=== PATIENT | male | born 1990 | race Caucasian/White ===

== ENCOUNTER 2016-10-10 17:48 | Emergency (ER) | payer OTHER ==
--- NOTE | ~2016-10-10 | CR72 ---
[facility]. [facility] A Service of [facility] & [facility] RADIOLOGY TEXT RESULTS PATIENT: SVETLANA PRABHAKAR LOCATION: SED : [birth year] UNIT #: [id number] AGE: [address]: DOMENICA CRUZ PA-C SEX: M ORDER DR: [id number] [place] [address] [id number] E MR#: [id number] Acc #: [id number] NAME: SVETLANA PRABHAKAR : 1990 SEX: M STUDY DATE/TIME: 10/10/2016 20:19 UNIT: SED ROOM: STUDY DESCRIPTION: CR Chest Single View Portable Attending Physician: Domenica Cruz Pa-C Ordering Physician: Bhavin Poole M.D. Primary Care Physician: No Primary Care Physician MEDICAL IMAGING REPORT This report is preliminary unless electronic signature is present. EXAM Single view chest INDICATIONS Right-sided chest tube. Pneumothorax. FINDINGS Single portable AP view of the chest at 24:19 compared to 17:56. There is a right-sided chest tube. The right pneumothorax has resolved. Heart and mediastinal contours are unchanged. The left lung is clear. IMPRESSION Resolution of the right pneumothorax status post chest tube placement. Dictated by... Shane Francois M.D. THIS IS AN ELECTRONICALLY VERIFIED REPORT Shane Francois M.D. at 10/11/2016 3:05 PM MONICA/can TD: 10/11/2016 00:59 JOB #: [id number] MEDICAL IMAGING REPORT Page 1 of 1
--- NOTE | ~2016-10-10 | CR63 ---
[facility]. [facility] A Service of [facility] & [facility] RADIOLOGY TEXT RESULTS PATIENT: SVETLANA PRABHAKAR LOCATION: SED : 91 UNIT #: [id number] AGE: [address]: DOMENICA CRUZ PA-C SEX: M ORDER DR: [id number] [place] [id number] E MR#: [id number] Acc #: [id number] NAME: SVETLANA PRABHAKAR : 1990 SEX: M STUDY DATE/TIME: 10/10/2016 17:56 UNIT: SED ROOM: STUDY DESCRIPTION: CR Chest 2 View Attending Physician: Domenica Cruz Pa-C Ordering Physician: Emiliano De Jesus M.D. Primary Care Physician: No Primary Care Physician MEDICAL IMAGING REPORT This report is preliminary unless electronic signature is present. EXAM PA and lateral chest HISTORY Fell today with right flank and rib injury. Shortness of air. FINDINGS 2 views of the chest demonstrate a moderate sized right pneumothorax measuring close to 30%. Mild atelectasis in the right base. Mild left lower thoracic curve. No infiltrates on the left. No effusions. No rib fractures identified. IMPRESSION 1. Moderate sized right pneumothorax measures close to 30%. 2. Mild atelectasis in the right base. 3. No fracture is identified. 4. Left lung is clear. Dictated by... Prem Harvey M.D. THIS IS AN ELECTRONICALLY VERIFIED REPORT Prem Harvey M.D. at 10/11/2016 10:55 PM MASON/can TD: 10/10/2016 23:20 JOB #: [id number] MEDICAL IMAGING REPORT Page 1 of 1
[2016-10-10 19:29] LABS: URINE SOURCE CLEAN CATCH
[2016-10-10 19:33] LABS: URINE APPEARANCE CLEAR; URINE BILIRUBIN NEG (NEG); URINE BLOOD NEG (NEG); URINE COLOR YELLOW; URINE GLUCOSE NEG (NORM); URINE KETONE TRACE (NEG); URINE LEUKOCYTE ESTERASE NEG (NEG); URINE NITRATE NEG (NEG); URINE PH 5.5 (5-8); URINE PROTEIN TRACE (NEG); URINE SPECIFIC GRAVITY >=1.030 (1.003-1.035); URINE UROBILINOGEN 0.2 MG/DL (NORM)
[2016-10-10 19:36] LABS: MICRO INDICATED? NO
== END 2016-10-10 21:12 ==
LOC: SED 17:48
PROVIDERS: Physician Assistant
DX: S27.0XXA Traumatic pneumothorax, initial encounter (principal); W01.0XXA Fall on same level from slipping, tripping and stumbling without subsequent striking against object, initial encounter; Y92.830 Public park as the place of occurrence of the external cause
CPT/HCPCS: 32551; 71010; 71020; 81003; 96372; 96374; 96375; 99285; J1885; J2250; J2270; J2405